=== PATIENT | male | born 1970 | race Caucasian/White ===

== ENCOUNTER 2017-10-05 20:46 | Emergency (ER) | payer SELFPAY | END 2017-10-05 21:35 | disposition home or self-care (01) | LOC: D.ER 20:46 | DX: S60.212A Contusion of left wrist, initial encounter (principal); W20.8XXA Other cause of strike by thrown, projected or falling object, initial encounter; Y93.89 Activity, other specified; Y92.019 Unspecified place in single-family (private) house as the place of occurrence of the external cause; F17.200 Nicotine dependence, unspecified, uncomplicated ==

== ENCOUNTER 2018-04-10 10:41 | Emergency (ER) | payer OTHER ==
[~2018-04-10] VITALS: Ht 182.9 cm; Wt 93.6 kg
--- NOTE | ~2018-04-10 | CN ---
PATIENT NAME:MARCO ARMANDO MEDICAL RECORD: [id number] : 68 LOCATION:.ER ADMIT DATE: ACCOUNT: [id number] CONSULTING PHYSICIAN: LILI ROSALES MD REFERRING PHYSICIAN: ISABELLA SCHWARZ MD DATE OF CONSULTATION: 04/10/2018 DIAGNOSES: 1. Hypertensive urgency. 2. Shortness of breath and dyspnea on exertion. 3. Chest pain. HISTORY: This is a gentleman who presents with shortness of breath, dyspnea on exertion, and chest tightness. He was found to have systolic blood pressure greater than 200. Given hydralazine and his systolic blood pressure went to the 140s. All his symptomatology resolved. His EKG is with no acute changes. First troponin is normal. PHYSICAL EXAMINATION: GENERAL APPEARANCE: Well-nourished, well-developed, appears stated age. Level of distress, comfortable. PSYCHIATRIC: Mental status, alert, normal affect. Orientation, oriented to time, place and person. EYES: Lids and conjunctiva, noninjected. No discharge, no pallor. ENT: Lips, teeth, gums, normal dentition. Oropharynx, no cyanosis, no pallor. NECK: Carotid arteries, bilateral normal upstroke, no bruits, no thrills. JUGULAR VEINS: No jugular venous pressure or distention. CERVICAL LYMPH NODES: Nontender, nonenlarged. THYROID: Not enlarged. Nontender. No nodules. LUNGS: Respiratory effort, unlabored. CHEST: Normal curvature. No thoracic deformity. No chest wall tenderness. Percussion, resonant. Auscultation, clear. No wheezes, no rales, no rhonchi. CARDIOVASCULAR: Precordial exam, nondisplaced. No heaves or pericardial thrills. Rate and rhythm, regular. Heart sounds, normal S1, normal S2. No S3, no gallop, no rub. Systolic murmur, not heard. Diastolic murmur, not heard. EXTREMITIES: No cyanosis, no edema. Peripheral pulses, full and equal in all extremities, except as noted. No bruits appreciated. ABDOMEN: Soft, nondistended. Normal aorta. No bruit. Nontender. No masses. Liver, nontender, no hepatomegaly. Spleen, nontender, no splenomegaly. MUSCULOSKELETAL: No joint tenderness. No joint swelling. No erythema. NEUROLOGICAL: Normal gait, normal strength, normal tone. SKIN: Warm and dry. OVERALL IMPRESSION: Out of control hypertension. He was supposed to be on a blood pressure medication since age of 30s, but stopped this due to sexual side effects. We will now put him on losartan 100/25 daily. We will see him back in the office in 2-3 weeks and perform stress testing at that time. If he continues to have symptoms, he has our contact information and will call immediately. TRANSINT:[id number] Voice Confirmation ID: [id number] DOCUMENT ID: [id number] CONSULT REPORT [id number] MARCO ARMANDO, LILI BIRD at 1859 CC: [id number] DICTATION DATE: 04/10/18 1320 LEAD QA ANALYST: 04/10/18 1352 DEP ER 04/10/18 [facility] [address] [place] [address]
[2018-04-10 10:47] VITALS: Ht 182.9 cm; Wt 93.6 kg
[2018-04-10] MEDS ORDERED: ZANTAC300 MG PO (10:49)
[2018-04-10 11:02] LABS: BASOPHILS 0.4 % (0-2); EOSINOPHILS 0.1 % (0-7); HEMATOCRIT 50.9 % (42.0-54.0); HEMOGLOBIN 17.8 g/dL (13.5-17.5); IMMATURE GRANULOCYTES 0.4 % (0-5); LYMPHOCYTES 18.8 % (15-50); MCH 32.2 pg (26.0-34.0); MCV 92.2 fL (80.0-100.0); MEAN PLATELET VOLUME 11.5 fL (7.4-10.4); MONOCYTES 8.9 % (2-11); NEUTROPHILS 71.4 % (40-80); PLATELET COUNT 207 10x3/uL (130-400); RBC 5.52 10x6/uL (4.20-6.10); RDW 12.6 % (11.5-14.5); WBC 7.6 10x3/uL (4.8-10.8)
[2018-04-10 11:20] LABS: ALBUMIN 4.3 g/dL (3.4-5.0); ALKALINE PHOSPHATASE 55 U/L (46-116); ALT (SGPT) 50 U/L (10-68); BILIRUBIN - TOTAL 0.51 mg/dL (0.2-1.3); CALC OSMOLALITY 272 mosm/kg (275-300); CALCIUM 9.4 mg/dL (8.5-10.1); CHLORIDE - SERUM 100 mmol/L (98-107); CREATININE - SERUM 1.1 mg/dL (0.6-1.3); GLUCOSE 140 mg/dL (74-106); PROTEIN - SERUM 8.1 g/dL (6.4-8.2); SODIUM 136 mmol/L (136-145); UREA NITROGEN 10 mg/dL (7-18); eGFR NON AFRICAN AMERICAN 75 mL/min (90-120)
[2018-04-10 11:31] LABS: CKMB 1.3 U/L (0.0-3.6); CREATINE KINASE 129 UL (21-232)
[2018-04-10 11:32] LABS: TROPONIN-I < 0.017 ng/mL (0.000-0.060)
[2018-04-10] MEDS ORDERED: HYDROCHLOROTHIA25 MG PO (13:25)
[2018-04-10] MEDS ORDERED: COZAAR100 MG PO (13:25)
[2018-04-10 14:15] VITALS: BP 157/96
== END 2018-04-10 14:15 | disposition home or self-care (01) ==
LOC: D.ER 10:41
PROVIDERS: Family Medicine
DX: R07.9 Chest pain, unspecified (principal); I10 Essential (primary) hypertension; F17.200 Nicotine dependence, unspecified, uncomplicated